=== PATIENT | female | born 1970 | race Caucasian/White ===

== ENCOUNTER 2018-07-07 12:34 | Emergency (ER) | payer OTHER ==
[~2018-07-07] VITALS: Ht 167.6 cm; Wt 88.9 kg
--- NOTE | 2018-07-07 14:05 | RAD ---
Left shoulder radiograph 07/07/2018 1:55 PM INDICATION: Jumped off left yesterday. Pain in left shoulder and ankle. History of clavicular fracture. COMPARISON: None available. TECHNIQUE: 3 views left shoulder are provided. FINDINGS: There is no acute fracture or dislocation. Bone mineralization is within normal limits. Joint spaces are maintained. Regional soft tissues are within normal limits. There is no soft tissue gas or osseous erosion. There is a remote healed fracture involving the distal one third of the left clavicle. IMPRESSION: No acute fracture or dislocation. Electronically signed by: Iman Dodd MD (07/07/2018 2:01 PM) [id number]
--- NOTE | 2018-07-07 14:05 | RAD ---
Right ankle radiograph 07/07/2018 1:52 PM INDICATION: Jumped off lift yesterday. Pain in the shoulder and ankle. COMPARISON: None available. TECHNIQUE: 3 views of the right ankle are provided. FINDINGS: There is no acute fracture or dislocation. Tibial plafond and talar dome are intact. Ankle mortise is congruent. Bone mineralization is within normal limits. Joint spaces are maintained. Regional soft tissues are within normal limits. There is no soft tissue gas or osseous erosion. IMPRESSION: No acute fracture or dislocation. Electronically signed by: Iman Dodd MD (07/07/2018 2:02 PM) [id number]
--- NOTE | 2018-07-07 15:56 | PHYS DOC ---
Past History Past Medical History: Arthritis Past Surgical History: Hysterectomy Alcohol Use: Rarely Drug Use: None Adult General Chief Complaint Chief Complaint: ANKLE PROBLEM HPI HPI 48 yo female presents with left shoulder and right ankle pain. This is Worker' s Comp. She was jumping off the wheelchair ramp on her bus when her left sleeve got caught in the door as she was hanging from a cellulitis. When she got her sleeve to tear she landed on her right foot and rolled her ankle inward. She felt a popping and pulling sensation in her shoulder. She also had immediate pain in her ankle, but was able to walk. She is here to see if she has any serious injuries. She is most concerned about the shoulder. She has broken it in the past. She denies any head trauma or loss of consciousness. [] Review of Systems Review of Systems Constitutional: Denies fever or chills [] Eyes: Denies change in visual acuity, redness, or eye pain [] HENT: Denies nasal congestion or sore throat [] Respiratory: Denies cough or shortness of breath [] Cardiovascular: No additional information not addressed in HPI [] GI: Denies abdominal pain, nausea, vomiting, bloody stools or diarrhea [] : Denies dysuria or hematuria [] Musculoskeletal: Left shoulder pain, right ankle pain[] Integument: Denies rash or skin lesions [] Neurologic: Denies headache, focal weakness or sensory changes [] Endocrine: Denies polyuria or polydipsia [] All other systems were reviewed and found to be within normal limits, except as documented in this note. Allergies Allergies Allergies Coded Allergies Type Severity Reaction Last Updated Verified No Known Drug Allergies 07/07/18 No Physical Exam Physical Exam Constitutional: Well developed, well nourished, no acute distress, non-toxic appearance. [] HENT: Normocephalic, atraumatic, bilateral external ears normal, oropharynx moist, no oral exudates, nose normal. [] Eyes: PERRLA, EOMI, conjunctiva normal, no discharge. [] Neck: Normal range of motion, no tenderness, supple, no stridor. [] Cardiovascular:Heart rate regular rhythm, no murmur [] Lungs & Thorax: Bilateral breath sounds clear to auscultation [] Abdomen: Bowel sounds normal, soft, no tenderness, no masses, no pulsatile masses. [] Skin: Warm, dry, no erythema, no rash. [] Back: No tenderness, no CVA tenderness. [] Extremities: Left shoulder pain with abduction along the supraspinatus. Positive apprehension test. Range of motion within normal limits despite pain. Strength 5 out of 5. Right ankle lateral ankle tenderness. Joint is stable. Some tenderness with high ankle palpation. [] Neurologic: Alert and oriented X 3, normal motor function, normal sensory function, no focal deficits noted. [] Psychologic: Affect normal, judgement normal, mood normal. [] Current Patient Data Vital Signs Vital Signs Date Time Temp Pulse Resp B/P (MAP) Pulse Ox O2 Delivery O2 Flow Rate FiO2 07/07/18 14:36 84 18 125/80 (95) 98 Room Air 07/07/18 13:21 98.2 EKG EKG [] Radiology/Procedures Radiology/Procedures [] Impressions: Right ankle radiograph 07/07/2018 1:52 PM INDICATION: Jumped off lift yesterday. Pain in the shoulder and ankle. COMPARISON: None available. TECHNIQUE: 3 views of the right ankle are provided. FINDINGS: There is no acute fracture or dislocation. Tibial plafond and talar dome are intact. Ankle mortise is congruent. Bone mineralization is within normal limits. Joint spaces are maintained. Regional soft tissues are within normal limits. There is no soft tissue gas or osseous erosion. IMPRESSION: No acute fracture or dislocation. Electronically signed by: Iman Dodd MD (07/07/2018 2:02 PM) [id number] Left shoulder radiograph 07/07/2018 1:55 PM INDICATION: Jumped off left yesterday. Pain in left shoulder and ankle. History of clavicular fracture. COMPARISON: None available. TECHNIQUE: 3 views left shoulder are provided. FINDINGS: There is no acute fracture or dislocation. Bone mineralization is within normal limits. Joint spaces are maintained. Regional soft tissues are within normal limits. There is no soft tissue gas or osseous erosion. There is a remote healed fracture involving the distal one third of the left clavicle. IMPRESSION: No acute fracture or dislocation. Electronically signed by: Iman Dodd MD (07/07/2018 2:01 PM) [id number] Course & Med Decision Making Course & Med Decision Making Pertinent Labs and Imaging studies reviewed. (See chart for details) Patient's x-rays are negative for fracture. Her urine drug screen is pending and part of the Worker's Comp. I believe her left shoulder has been strained. She could have partial ligament tears but no complete tears. Her right ankle is a mild strain. She does not need any further management for this injury. She is stable for discharge at this time. [] Dragon Disclaimer Dragon Disclaimer This electronic medical record was generated, in whole or in part, using a voice recognition dictation system. Departure Departure: Referrals: SUKHWINDER RASMUSSEN (PCP) MERLYN BRO DO Jul 07, 2018 15:56
[2018-07-07 16:19] VITALS: BP 126/80
== END 2018-07-07 16:20 | disposition home or self-care (01) ==
LOC: ER 12:34
DX: S96.911A Strain of unspecified muscle and tendon at ankle and foot level, right foot, initial encounter (principal); M25.512 Pain in left shoulder; M19.90 Unspecified osteoarthritis, unspecified site; W17.89XA Other fall from one level to another, initial encounter; Y93.39 Activity, other involving climbing, rappelling and jumping off; Y92.89 Other specified places as the place of occurrence of the external cause; Y99.8 Other external cause status
CPT/HCPCS: 73030; 73610; 99284